=== PATIENT | male | born 2005 | race Caucasian/White ===

== ENCOUNTER 2024-03-23 12:56 | Emergency (ER) | payer OTHER | END 2024-03-23 13:37 | disposition home or self-care (01) | LOC: NAV ERS 12:56 | DX: J06.9 Acute upper respiratory infection, unspecified (principal); H65.92 Unspecified nonsuppurative otitis media, left ear | CPT/HCPCS: 99283 ==

== ENCOUNTER 2024-04-21 20:02 | Emergency (ER) | payer OTHER ==
[~2024-04-21 20:02] MED LIST: Iopamidol 370 76% 100 ML VIAL ONE
[2024-04-21] MEDS ORDERED: Ibuprofen 200 MG TAB ONE (20:21)
[2024-04-21] MEDS ORDERED: Sodium Chloride 0.9% 1,000 ML ONE (20:21)
[2024-04-21 20:49] LABS: Bilirubin Small (Negative); Blood, Urine Negative (Negative); Clarity Clear (Clear); Glucose, Urine (Dipstick) Negative (Negative); Ketone, Urine Trace mg/dL (Negative); Leukocyte Negative (Negative); Nitrite Negative (Negative); Protein, Urine (Dipstick) 30 mg/dL (Neg-Trace)
[2024-04-21 20:55] LABS: Hematocrit 41.5 % (42.0-52.0); Hemoglobin 13.2 g/dL (14.0-18.0); Mean Corpuscular HGB CONC 31.7 g/dL (32.0-36.0); Mean Corpuscular Hemoglobin 25.6 pg (25.0-35.0); Mean Corpuscular Volume 80.6 fl (78.0-98.0); Mean Platelet Volume 7.7 fL (7.4-10.4); Platelet Count 323 10x3/uL (130-400); RBC Distribution Width 12.7 % (11.5-14.5); Red Blood Cell (RBC) Count 5.15 mill/uL (4.00-5.20)
[2024-04-21 20:56] LABS: Amphetamine Not Detected (NotDetected); Barbiturates Screen Not Detected (NotDetected); Benzodiazepine Screen Not Detected (NotDetected); Cocaine Metabolite Screen Not Detected (NotDetected); Methadone Not Detected (NotDetected); Methamphetamine Not Detected (NotDetected); Opiate Screen Not Detected (NotDetected); Oxycodone Screen Not Detected (NotDetected); Phencyclidine (PCP) Not Detected (NotDetected); THC/Cannabinoid Screen Not Detected (NotDetected); Tricyclic Screen Not Detected (NotDetected)
[2024-04-21 20:57] LABS: CAUTI Indications for Culture Dysuria,urgency,freq; RBC/HPF 0-3 HPF (0-3); Squamous Epithelial 0-3 HPF (0-3)
[2024-04-21 20:58] LABS: Bacteria/HPF Rare-Few HPF (None Seen); Mucous/LPF 2+ LPF (<2+); Urine Culture Reflex No No
[2024-04-21 21:00] LABS: ALT (SGPT) 155 U/L (8-55); AST (SGOT) 120 U/L (5-34); Albumin 3.2 g/dL (3.5-5.0); Alkaline Phosphatase 144 U/L (50-130); Anion Gap 12 mmol/L (10-20); BUN (Urea Nitrogen) 12 mg/dL (8.9-20.6); Calc. Creatinine Clearance 0 mL/min (70-130); Calcium 9.1 mg/dL (7.8-10.44); Carbon Dioxide 26 mmol/L (22-29); Chloride 101 mmol/L (98-107); Estimated GFR 129; Globulin 3.8 g/dL (2.4-3.5); Glucose 97 mg/dL (70-105); Lipase 23 U/L (8-78); Potassium 3.5 mmol/L (3.5-5.1); Sodium 135 mmol/L (136-145)
[2024-04-21 21:17] LABS: Anisocytosis SLIGHT = 6-15 cells (100X) (0-5/hpf); Band 5 % (5-11); Eosinophils 4 % (0-10); Hypochromia SLIGHT = 6-15 cells (100X) (0-5/hpf); Lymphocytes 39 % (28-48); MDiff Complete? YES; Monocytes 2 % (0-4); Neutrophil 27 % (31-61); Other Cell Types 2; Platelet Adequacy Comment Appears Adequate; Poikilocytosis SLIGHT = 6-15 cells (100X) (0-5/hpf)
[2024-04-21 21:18] LABS: Reactive Lymphocytes 21 % (0-10)
[2024-04-21 21:20] LABS: Reflex for Review?? YES
[2024-04-21] MEDS ORDERED: Acetaminophen 500 MG TAB ONE (21:31)
[2024-04-21] MEDS ORDERED: Clindamycin 150 MG CAP ONE (23:50)
== END 2024-04-21 23:59 | disposition home or self-care (01) ==
LOC: NAV ERS 20:02
DX: L03.316 Cellulitis of umbilicus (principal); B34.9 Viral infection, unspecified; I88.0 Nonspecific mesenteric lymphadenitis; E86.0 Dehydration; R16.2 Hepatomegaly with splenomegaly, not elsewhere classified
CPT/HCPCS: 71046; 74177; 80053; 80306; 81001; 83690; 85025; 85060; 87070; 87081; 87205; 87428; 87430; 96360; J7030; Q9967